=== PATIENT | female | born 1980 | race Caucasian/White ===

== ENCOUNTER 2023-04-17 17:29 | Emergency (ER) | payer OTHER ==
[2023-04-17 17:39] VITALS: BP 140/88; PULSE 106; RESP 19; TEMP 98.6; BMI 33.1
[2023-04-17] MEDS ORDERED: DEXAMETHASONE SOD PHOSPHATE 10 MG/1 ML VIAL IM ONE (18:41)
[2023-04-17] MEDS ORDERED: DEXAMETHASONE SOD PHOSPHATE 10 MG/1 ML VIAL ONE (18:46)
== END 2023-04-17 20:16 | disposition home or self-care (01) ==
LOC: JERFT 17:29
PROC: 3E023GC Introduction of Other Therapeutic Substance into Muscle, Percutaneous Approach (ICD-10-PCS; principal; 2023-04-17)
DX: R05.9 Cough, unspecified (principal)
CPT/HCPCS: 71046-TC-FY; 99284-25; J1100